=== PATIENT | male | born 1980 | race American Indian/Alaskan Native ===

== ENCOUNTER 2017-08-06 05:23 | Emergency (ER) | payer SELFPAY ==
[2017-08-06 05:51] LABS: Basophils % (Auto) 1.2 % (0.0-1.8); Eosinophils % (Auto) 4.4 % (0.0-4.3); Hematocrit 40.1 % (35.5-45.6); Hemoglobin 13.9 gm/dl (11.8-15.2); Mean Corpuscular HGB Conc 35 % (32-34); Mean Corpuscular Hemoglobin 30 pg (28-32); Mean Corpuscular Volume 86 fl (84-94); Platelet Count 232 K/mm3 (140-440); Red Blood Count 4.67 M/mm3 (3.65-5.03); Red Cell Distribution Width 13.4 % (13.2-15.2); White Blood Count 7.2 K/mm3 (4.5-11.0)
[2017-08-06 06:08] LABS: Anion Gap 16 mmol/L; BUN/Creatinine Ratio 18; Blood Urea Nitrogen 16 mg/dL (9-20); Calcium 8.9 mg/dL (8.4-10.2); Carbon Dioxide 27 mmol/L (22-30); Glucose 112 mg/dL (75-100); Sodium 141 mmol/L (137-145)
--- NOTE | 2017-08-06 07:34 | XRay Report ---
FINAL REPORT EXAM: XR CHEST ROUTINE 2V HISTORY: Shortness of breath. TECHNIQUE: A lateral and two frontal radiographs of the chest were obtained. No prior studies are available for comparison. FINDINGS: The cardiac silhouette and mediastinum are within normal limits. The lungs are clear bilaterally, without focal infiltrate or effusion. There is no pneumothorax. There is chronic appearing bony deformity of the right lateral 7th rib, likely sequela of prior injury. IMPRESSION: No active disease seen in the chest.
--- NOTE | 2017-08-06 10:05 | Emergency Department Report ---
HPI - General Chief Complaint: Upper Respiratory Infection Time Seen by Provider: 08/06/17 09:16 - HPI HPI: Patient reports shortness of breath, coughing up brown sputum and chills for 2 days. States that he think he has pneumonia. He said it's painful and he coughs but reports no pain without coughing. Patient denies any fever or chills. Denies any nausea or vomiting. Reports nasal congestion and runny nose that's been going on for over a week and cough and with shortness of breath and exertion started 2 days ago. He said he took [id number] medication but it didn't help. Denies any medical problems. He said he has a history of heart murmur as a child. Patient also reports that he is wheezy and denies any history of asthma. ED Past Medical Hx - Past Medical History Previous Medical History?: Yes Additional medical history: heart murmur - Surgical History Past Surgical History?: Yes Additional Surgical History: abd/right ankle - Family History Family history: hypertension - Social History Smoking Status: Current Every Day Smoker Substance Use Type: Alcohol - Medications Home Medications: Home Medications Medication Instructions Recorded Confirmed Last Taken Type Cephalexin [Keflex] 500 mg PO Q6H #40 capsule 05/18/14 Unknown Rx HYDROcodone/APAP 7.5-325 [Gruver 1 each PO Q6HR PRN #25 tablet 05/18/14 Unknown Rx 7.5/325 mg] Ibuprofen [Motrin] 600 mg PO Q8H PRN #60 tablet 05/18/14 Unknown Rx Albuterol Sulfate [Ventolin HFA] 2 puff IH Q4H PRN #1 hfa.aer.ad 08/06/17 Unknown Rx Amoxicillin/K Clav Tab [Augmentin 1 tab PO Q12HR #20 tab 08/06/17 Unknown Rx 875 mg] Cetirizine HCl [ZyrTEC] 10 mg PO QAM #14 capsule 08/06/17 Unknown Rx Fluticasone [Flonase] 1 spray NS QDAY #1 bottle 08/06/17 Unknown Rx Prednisone 50 mg PO QAM #5 tablet 08/06/17 Unknown Rx guaiFENesin/CODEINE [Robitussin AC] 5 ml PO Q12H PRN #70 oral.liqd 08/06/17 Unknown Rx ED Review of Systems ROS: Stated complaint: BENJY Other details as noted in HPI Comment: All other systems reviewed and negative Constitutional: no symptoms reported Eyes: denies: eye pain, eye discharge ENT: congestion (nasal congestion and drainage). denies: ear pain, throat pain Respiratory: cough, shortness of breath, SOB with exertion, wheezing. denies: orthopnea, SOB at rest, stridor Cardiovascular: other ( chest sore with cough and). denies: chest pain, palpitations, dyspnea on exertion, edema, syncope, paroxysmal nocturnal dyspnea Gastrointestinal: denies: abdominal pain, nausea, vomiting Musculoskeletal: myalgia. denies: back pain, arthralgia Skin: denies: rash Neurological: denies: headache, weakness, numbness, paresthesias, confusion, abnormal gait, vertigo Physical Exam - Physical Exam Vital Signs: Vital Signs 08/06/17 05:31 Temperature 97.8 F Pulse Rate 86 Respiratory 20 Rate Blood Pressure 137/101 O2 Sat by Pulse 98 Oximetry Vital Signs 08/06/17 08/06/17 05:31 10:16 Temperature 97.8 F Pulse Rate 86 Pulse Rate [ 80 Anterior Bilateral Throughout] Respiratory 20 Rate Respiratory 20 Rate [Anterior Bilateral Throughout] Blood Pressure 137/101 O2 Sat by Pulse 98 Oximetry General: This is a 36-year-old male well-nourished well-developed in no acute distress. Physical Exam: Head: Normocephalic, atraumatic, no abrasion, no bruising and no contusion. Eyes: Biateral pupils equal and reactive to light, bilateral EOM intact.. Bilateral conjunctival and sclera without injection, normal accommodation. Nose:Nasal mucosa congested with erythema and clear drainage. No frontal and meds or sinus tenderness. Ears: Matthieu TM congested without any erythema, bilateral ears see normal. No mastoid bone tenderness Neck: Supple,No Cervical adenopathy, full range of motion and no C-spine tenderness. No swelling or tracheal deviation normal reflexes Mouth: Pharyngeal exudate or erythema. No peritonsillar abscess. Moist, oral airways patent a uvula is midline. Abdomen soft, nontender to palpation. No guarding no rebound tenderness and no CVA tenderness. Cardiovascular: S1, S2. Regular rate and rhythm. No murmur. Capillary refill is less then 3 seconds. Lungs: Positive cough with scattered wheezing to upper lung [place]. No rhonchi or rales. No use of accessory muscle. No chest wall tenderness MSK: Strength 5/5 in all extremities. No joint deformity or crepitus. Normal inspection. Full range of motion to all extremities Extremities: No clubbing, cyanosis or edema. +2 pulses. No neurovascular compromise Skin: Clean, dry and intact. No rash or lesions. ED Course Vital Signs 08/06/17 05:31 Temperature 97.8 F Pulse Rate 86 Respiratory 20 Rate Blood Pressure 137/101 O2 Sat by Pulse 98 Oximetry Vital Signs 08/06/17 08/06/17 08/06/17 05:31 10:16 10:29 Temperature 97.8 F Pulse Rate 86 Pulse Rate [ 80 86 Anterior Bilateral Throughout] Respiratory 20 Rate Respiratory 20 18 Rate [Anterior Bilateral Throughout] Blood Pressure 137/101 Blood Pressure [Left] O2 Sat by Pulse 98 Oximetry 08/06/17 10:42 Temperature 98.0 F Pulse Rate 88 Pulse Rate [ Anterior Bilateral Throughout] Respiratory 16 Rate Respiratory Rate [Anterior Bilateral Throughout] Blood Pressure Blood Pressure 128/69 [Left] O2 Sat by Pulse 100 Oximetry - Reevaluation(s) Reevaluation #1: 08/06/17 10:36 Patient given DuoNeb 1 nebulizer treatment in emergency room, Deltasone 60 mg by mouth and codeine 10 mL by mouth for coughing. He had no adverse reaction. KG normal sinus rhythm at 75 bpm. Chest x-ray was normal ED Medical Decision Making - Lab Data Result diagrams: 08/06/17 05:36 08/06/17 05:36 Lab Results 08/06/17 08/06/17 Range/Units 05:36 05:36 WBC 7.2 (4.5-11.0) K/mm3 RBC 4.67 (3.65-5.03) M/mm3 Hgb 13.9 (11.8-15.2) gm/dl Hct 40.1 (35.5-45.6) % MCV 86 (84-94) fl MCH 30 (28-32) pg MCHC 35 H (32-34) % RDW 13.4 (13.2-15.2) % Plt Count 232 (140-440) K/mm3 Lymph % (Auto) 33.0 (13.4-35.0) % [place] % (Auto) 10.1 H (0.0-7.3) % Eos % (Auto) 4.4 H (0.0-4.3) % Baso % (Auto) 1.2 (0.0-1.8) % Lymph # 2.4 (1.2-5.4) K/mm3 [place] # 0.7 (0.0-0.8) K/mm3 Eos # 0.3 (0.0-0.4) K/mm3 Baso # 0.1 (0.0-0.1) K/mm3 Seg Neutrophils % 51.3 (40.0-70.0) % Seg Neutrophils # 3.7 (1.8-7.7) K/mm3 Sodium 141 (137-145) mmol/L Potassium 4.0 (3.6-5.0) mmol/L Chloride 102.0 (98-107) mmol/L Carbon Dioxide 27 (22-30) mmol/L Anion Gap 16 mmol/L BUN 16 (9-20) mg/dL Creatinine 0.9 (0.8-1.5) mg/dL Estimated GFR > 60 ml/min BUN/Creatinine Ratio 18 % Glucose 112 H (75-100) mg/dL Calcium 8.9 (8.4-10.2) mg/dL Troponin T < 0.010 (0.00-0.029) ng/mL - EKG Data -: EKG Interpreted by Me (by attending physician) EKG shows normal: sinus rhythm (75 beats per minutes) Rate: normal - EKG Data Interpretation: no acute changes - Radiology Data Radiology results: report reviewed Chest x-ray revealed no acute cardiopulmonary disease. 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 Patient confirmed that he had injury in the past rib contusion. - Medical Decision Making ED course: Pt there complaining that he think he has pneumonia he's been having upper respiratory symptoms for over 7 days and then developed cough in with chills over the past 2 days. He said these wheezy and his chest is sore when he coughs. Physical findings along with chest x-ray findings and laboratory findings shows patient with bronchitis, cough. Patient was given DuoNeb 1 nebulizer emergency room, Deltasone 60 mg by mouth and [id number] mL by mouth for coughing. Pt had no fever throughout ED stay. EKG showed normal sinus rhythm at 75 bpm . The patient is lab results with CBC showed no elevation in white cell and stable and BMP was also stable, troponin normal level. All these levels are explained to patient and diagnosis and treatment plan explained and he voiced understanding. Based on Perc rule ,patient is 0 criteria for PE and no need for further diagnostic workup. Patient discharged home a prescription for Augmentin, Guaifenesen with codeine, Flonase, Zyrtec, prednisone and Ventolin inhaler. I instructed him that he needs to take by mouth GERD or eat something when he is taking antibiotic and he needs to follow- up with his primary care physician in 3 days and if he does not have one he needs to follow up with [facility]. Critical care attestation.: If time is entered above; I have spent that time in minutes in the direct care of this critically ill patient, excluding procedure time. ED Disposition Clinical Impression: Nasal congestion with rhinorrhea, Cough in adult Acute bronchitis Qualifiers: Bronchitis organism: unspecified organism Qualified Code(s): J20.9 - Acute bronchitis, unspecified Disposition: DC-01 TO HOME OR SELFCARE Is pt being admited?: No Does the pt Need Aspirin: No Condition: Stable Instructions: Acute Bronchitis (ED), Acute Cough (ED) Additional Instructions: Pls increase her fluid intake Take medication as prescribed Please do not drive or operate while taken codeine cough medicine as this medication causes drowsiness Preoperative primary care in 3 days and if he do not have one follow-up with outside Medical Center Use Ventolin inhaler every 4-6 hours for the next 48 hours and then as needed for cough and wheezing. Prescriptions: Albuterol Sulfate [Ventolin HFA] 2 puff IH Q4H PRN #1 hfa.aer.ad PRN Reason: Wheezing and cough Amoxicillin/K Clav Tab [Augmentin 875 mg] 1 tab PO Q12HR #20 tab Cetirizine HCl [ZyrTEC] 10 mg PO QAM #14 capsule Fluticasone [Flonase] 1 spray NS QDAY #1 bottle guaiFENesin/CODEINE [Robitussin AC] 5 ml PO Q12H PRN #70 oral.liqd PRN Reason: Cough Prednisone 50 mg PO QAM #5 tablet Referrals: PRIMARY CARE, [Primary Care Provider] - 08/09/17 [facility] [Outside] - 08/09/17 Forms: Accompanied Note, Work/School Release Form(ED)
[2017-08-06] MEDS ORDERED: DUONEB *Not for PRN Use IH ONE (10:06)
[2017-08-06] MEDS ORDERED: DELTASONE PO ONE (10:06)
[2017-08-06] MEDS ORDERED: TYLENOL/CODEINE PO ONE (10:31)
[2017-08-06 10:43] VITALS: BP 128/69
== END 2017-08-06 11:11 | disposition home or self-care (01) ==
LOC: ED 05:23
DX: J20.9 Acute bronchitis, unspecified (principal); F17.210 Nicotine dependence, cigarettes, uncomplicated
CPT/HCPCS: 36415; 71020; 80048; 84484; 85025; 93005; 93010; 94640; 99284; J7512